=== PATIENT | male | born 1990 | race Caucasian/White ===

== ENCOUNTER 2022-06-13 13:29 | Emergency (ER) | payer BC, SELFPAY ==
[2022-06-13 13:29] VITALS: BP 147/93; PULSE 70; RESP 16; TEMP 37.1; O2SAT 97; BMI 31.6
--- NOTE | 2022-06-13 14:08 | RAD_ITS ---
EXAM: XR LEFT TIBIA AND FIBULA, 2 VIEWS CLINICAL INDICATION: injury TECHNIQUE: Frontal and lateral views of the left tibia and fibula. This report was created using [employer] report generation technology. COMPARISON: None. FINDINGS: BONES/JOINTS: Unremarkable. No acute fracture. No subluxation. Normal alignment. Preservation of the joint space. No sclerotic or destructive changes observed. SOFT TISSUES: Unremarkable. No soft tissue swelling or gas. No radiopaque foreign body. RAD/Tibia & Fibula 2 Views IMPRESSION: Negative left tibia and fibula x-rays. Electronically Signed: Jacob Lee MD at 15:17 EDT ,
--- NOTE | 2022-06-13 14:08 | RAD_ITS ---
STUDY: X-RAY - LEFT ANKLE REASON FOR EXAM: Male, 32 years old. Injury TECHNIQUE: 3 view(s) of the ankle. COMPARISON: None. FINDINGS: Normal visualized distal tibia and fibula. Normal medial and lateral malleoli. Normal tibiotalar articulation and ankle mortise. Normal visualized talus and calcaneus. The visualized subtalar, talonavicular, calcaneocuboid and tarsal articulations are normal. Soft tissue swelling of the lateral aspect of the ankle. RAD/Ankle min 3 Views IMPRESSION: Soft tissue swelling without evidence for acute fracture. Electronically Signed: Lobito Norwood MD at 14:36 EDT ,
--- NOTE | 2022-06-13 14:09 | EDS_ITS ---
HPI History of Present Illness Chief Complaint: Lower Extremity Injury Informant: patient and spouse/S.O. Narrative Narrative: 32-year-old male presenting to the emergency room with left ankle injury. Patient states that he was walking when he sustained an inversion injury to his left foot due to a storm drain. He notes pain over the lateral aspect of the ankle. He notes swelling. His significant other states that her father is a doctor and recommended they get it checked out. [facility] Medical History Hx of fracture of ankle Allergy/AdvReac Type Severity Reaction Status Date / Time bee venom protein (honey bee) Allergy Anaphylaxis Verified 06/13/22 13:33 pecan nut Allergy Anaphylaxis Verified 06/13/22 13:33 Social History (Updated 06/13/22 @ 14:[address] Kaleb Krause DO) current gender identity: male Smoking Status: Never smoker ROS ROS ED Constitutional Constitutional ED: Denies chills or weight loss Eyes Eyes: Denies change in vision or diplopia ENT ENT ED: Denies ear pain, rhinorrhea or sore throat Cardiovascular Cardiovascular: Denies chest pain, orthopnea, palpitations or racing heartbeat Respiratory/Chest Respiratory/Chest: Denies cough, dyspnea or orthopnea Gastrointestinal Gastrointestinal: Denies abdominal pain, diarrhea, nausea or vomiting Genitourinary Genitourinary ED: Denies dysuria, hematuria or urinary frequency Musculoskeletal Musculoskeletal: Reports other Details: See history of present illness ; Denies arthralgias or myalgias Integumentary Denies abscess or rash Neurologic Neurologic: Denies headache(s) or weakness Psychiatric Psychiatric: Denies anxiety, depression, suicidal ideation or suicidal thoughts Endocrine Endocrinology: Denies polydipsia, polyphagia or polyuria Allergic/Immunologic Allergic/Immunologic ED: Denies mouth swelling, tongue swelling or urticaria EXAM Physical Exam Const Vital Signs: 06/13/22 13:29 Temperature 98.7 F Temperature Source Temporal Pulse Rate 70 Respiratory Rate 16 Blood Pressure 147/93 H Blood Pressure Mean 111 Pulse Ox 97 Oxygen Delivery Method Room Air Positive well nourished and well developed General Appearance ED: well developed HEENT Reports normocephalic, head/scalp atraumatic and moist mucous membranes Eyes PERRL and EOMs intact bilaterally Neck no lymphadenopathy, supple and no JVD Resp normal respiratory effort and clear to auscultation bilaterally Cardio regular rate, regular rhythm and no murmurs GI normal to inspection, nondistended, normoactive bowel sounds and non-tender Palpation: soft Back/Spine no CVA tenderness and normal ROM Extremity Extremity Narrative: There is some localized swelling over the lateral malleolus of the left ankle. Mild tenderness to palpation. No fifth metatarsal pain. No medial malleoli or posterior malleoli or pain. He reports some tenderness over the fibular head. General Extremety ED: Negative for edema General Extremity: Negative for edema Neuro oriented x3 and CN's II-XII intact bilaterally Sensorium / Orientation: alert Motor Exam: strength 5/5 throughout Psych mental status grossly normal Mood & Affect: Negative for depressed or tearful Skin no rashes or lesions noted and no wounds MDM MDM MDM Narrative Medical decision making narrative: My clinical pression of the ankle x-rays is soft tissue swelling without evidence for fracture. My interpretation of the plain films of the tibia and fibula is no fibular head fracture specifically no otherwise noted fracture but soft tissue noted. Patient be treated conservatively as an ankle sprain return if worsening or concerns Radiography Diagnostic Testing: Clinical Impression(s) from Imaging Studies Ankle X-Ray 06/13/22 14:08 IMPRESSION: Soft tissue swelling without evidence for acute fracture. Electronically Signed: Lobito Norwood MD at 14:36 EDT , Discharge Plan Triage Chief Complaint: Lower Extremity Injury ED Provider: Kaleb Krause Dx/Rx/DC Orders Clinical Impression: Ankle sprain Instructions: ED Ankle Sprain (Adult) Primary Care Provider: Nabil Lim Referrals: Nabil Lim MD [Primary Care Provider] - 10-14 Days if not better Disposition Disposition: Home, Self Care
== END 2022-06-13 15:11 | disposition home or self-care (01) ==
PROVIDERS: Emergency Provider Emergency Medicine; PCP Family Medicine; Visit Provider Emergency Medicine
DX: S93.409A Sprain of unspecified ligament of unspecified ankle, initial encounter (principal); X50.1XXA Overexertion from prolonged static or awkward postures, initial encounter; Y92.89 Other specified places as the place of occurrence of the external cause
CPT/HCPCS: 73590; 73610; 99282

== ENCOUNTER 2023-02-08 08:00 | Outpatient (RCR) | payer BC, SELFPAY ==
--- NOTE | 2023-01-06 10:59 | HP.PTEVAL ---
Patient's Visit Information SARA VELASCO is a 32 year old M referred to Physical Therapy by BRENT Lazaro with a diagnosis of BILATERAL KNEE PAIN. Date of Evaluation: 01/06/23 Physical Therapist: Arslan Walter PT, Cert MDT, OCS - Visit Plan Frequency: 2x /Week Duration: 4 Weeks Plan: PT INTERVENTIONS HAMSTRINGS/QUADS FLEXIBLITY ,PRE QUADS/VMO/HAMSTRINGS/HIP ,AND CLOSED CHAIN/FUNCTIONAL STRENGTHENING - Subjective This 32 y/o male presents to physical therapy with bilateral knee pain. Patient has had knee pain R > L ~ 2months. Patient seen recommended PT. Patient located superior and inferior knee. Recommended sleeve and Aleve. Aggravating sitting ,squatting ,kneeling and stairs ascending. Alleviating factors rest. Denies paresthesia/tingling. Patient has no diagnostics. Patient pain affects sleeping. Patient pain affects QOL and function. Patient has no edema. No h/o trauma. Patients goals to have no pain. 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 SOCAIL: - Pain Bilateral Pain Intensity (Out of 10): 7 Pain Intensity Range: 10 - Objective POSTURE: patella haydee ,pes planus with calcaneal valgus. PALAPTION: tender patella tendon. GAIT: reciprocal pattern. NEURO: denies paresthesia/tingling. FLEXABLITY: hamstrings mild tight ,quads mild tight. MMT: quads/hams 4/5 ,hip flexion /extension/abduction 4/5. QUAD CONTRACTION: lateral deviation - Special Tests R Knee Brain - Meniscus: Negative R Knee Apley - Meniscus: Negative R Knee April - ACL: Negative R Knee Anterior Drawer - ACL: Negative R Knee Valgus - MCL: Negative R Knee Varus - LCL: Negative R Knee Patellar Apprehension - PFS: Positive R Knee Patellar Grind - PFS: Negative L Knee Brain - Meniscus: Negative L Knee Apley - Meniscus: Negative L Knee April - ACL: Negative L Knee Anterior Drawer - ACL: Negative L Knee Posterior Drawer - PCL: Negative L Knee Valgus - MCL: Negative L Knee Varus - LCL: Negative L Knee Patellar Apprehension - PFS: Positive L Knee Patellar Grind - PFS: Negative - Balance/Special Test Scores Lower Extremity Functional Score: 50 - Goals Goal 1:: I with HEP for knees Goal Time Frame: 4-6 Weeks Goal 2:: Patient to demonstrate 70% improvement with less pain and improved function Goal Time Frame: 4-6 Weeks Goal 3:: Patient to improve LFES score by 5-10 points to improve function/QOL Goal Time Frame: 4-6 Weeks Goal 4:: Patient to improve ability to stairs ,squatting and kneeling no improving function Goal Time Frame: 4-6 Weeks - Rehabilitation Potential Physical Therapy Diagnosis: This patient has bilateral knee pain due to patella femoral syndrome with instability + windshield wiper with lateral deviation ,patella Haydee and pain with squatting kneeling thus benefit from skilled PT Rehabilitation Potential: Good - Anticipated Interventions Patient/Client Instruction: Educate patient on: Condition, Plan of Care For the Purpose of:: To decrease pain, To increase ROM, To improve muscle performance and motor function, To increase tolerance to activity/condition/position, To improve health of tissue, To decrease soft tissue restriction, To improve health and function Therapeutic Exercise to Include: Strength training, Endurance training, Balance training, Postural training, Flexibilty training, Gait and locomotor training, Active ROM Comment: QUADS/HAMS/HIP For the Purpose of:: To decrease pain, To increase ROM, To improve muscle performance and motor function, To improve ability to perform ADL's, To increase tolerance to activity/condition/position, To improve ability of physical actions for home/community/work/leisure, To improve health of tissue, To decrease soft tissue restriction, To increase flexibility/ROM, To improve balance Thank you for the opportunity to evaluate your patient. For Medicare and Medicare HMO plans, please review the plan of care and approve it. It will need to be FAXED BACK to us at [phone] for Medicare purposes. For Medicare only, by signing this I certify the plan of care. Please let me know if there are questions or concerns regarding this plan of care. Physician Signature: Date:
--- NOTE | 2023-06-09 07:18 | HP.PTDCSUM ---
Discharge Summary D/C summary: It has been my pleasure to treat SARA VELASCO referred by BRENT Lazaro, with the diagnosis of BILATERAL KNEE PAIN for a total of 9 visit(s). Discharge Date: 02/08/23 Please see the following information for a summary of their discharge status. Subjective Subjective: Doing good ready for d/c Pain Bilateral: Pain Intensity (Out of 10): 0 Overall Improvement % Improvement: 80 Objective Objective/Function: POSTURE: patella yang ,pes planus with calcaneal valgus. PALAPTION: tender patella tendon. GAIT: reciprocal pattern. NEURO: denies paresthesia/tingling. FLEXABLITY: hamstrings mild tight ,quads mild tight. MMT: quads/hams 5/5 ,hip flexion /extension/abduction 4/5. Goals Goal 1:: I with HEP for knees Goal Progress: Goal Met Goal 2:: Patient to demonstrate 70% improvement with less pain and improved function Goal Progress: Goal Met Goal 3:: Patient to improve LFES score by 5-10 points to improve function/QOL Goal Progress: Goal Met Goal 4:: Patient to improve ability to stairs ,squatting and kneeling no improving function Goal Progress: Goal Met Plan Plan: D/C D/C Information d/c sentence: If there are questions or concerns regarding this patient's physical therapy, please feel free to call me at [phone]. Thank you for the referral of this patient. Sincerely, Arslan Walter, PT, Cert MDT, OCS Balance/Gait/Functional tests Balance/Special Test Scores Lower Extremity Functional Score: 74 Improvement % Improvement: 80
== END 2023-02-08 19:00 | disposition home or self-care (01) ==
LOC: PT 08:00
PROVIDERS: PCP Physician Assistant; Referring Provider Physician Assistant; Visit Provider Physician Assistant
DX: M25.561 Pain in right knee (principal)
CPT/HCPCS: 97110; 97161